=== PATIENT | female | born 1940 | race Caucasian/White ===

== ENCOUNTER → 2020-06-23 | Outpatient (CLI) | payer OTHER ==
[~2020-06-23] MED LIST: ADULT LOW DOSE81 MG PO; ATORVASTATIN CA10 MG PO; AUGMENTIN 875875 M1 PO; CIPROFLOXACIN500 M1 PO; FLUZONE 2045 MCG/011 IM; GARLIC OIL1 EAC1 PO; KLOR-CON PO; LIPITOR40 MG PO; MUCINEX TA600 MG/TAB PO; NOHOMEMEDICATIONS; NORCO 5-325 TA1 EACH PO; PEPCID AC20 M1 PO; PLAVIX 75 MG TA75 MG PO; VITAMIN E400 UNIT PO; Vitamin C; XOPENEX HF1 UDINHALE INH
== END ==
LOC: CAT 12:53
PROVIDERS: ATTEND Emergency Medicine
DX: K57.30 Diverticulosis of large intestine without perforation or abscess without bleeding (principal); N28.1 Cyst of kidney, acquired; N20.0 Calculus of kidney; I70.0 Atherosclerosis of aorta; I25.10 Atherosclerotic heart disease of native coronary artery without angina pectoris; R19.5 Other fecal abnormalities; M47.816 Spondylosis without myelopathy or radiculopathy, lumbar region; M25.78 Osteophyte, vertebrae

== ENCOUNTER → 2020-07-29 | Outpatient (CLI) | payer OTHER | LOC: ULTRA 08:24 | DX: N20.0 Calculus of kidney (principal) ==